=== PATIENT | male | born 1980 | race Native Hawaiian/Other Pacific Islander ===

== ENCOUNTER 2017-07-28 15:17 | Emergency (ER) | payer BC, OTHER ==
[~2017-07-28] VITALS: Ht 167.6 cm; Wt 72.6 kg
[2017-07-28] MEDS ORDERED: COLC0.6C3 PO (15:30)
--- NOTE | 2017-07-28 15:57 | NUR ---
Patient discharged to home in stable conditon. Written and verbal after care instructions given. Patient verbalizes understanding of instructions.
== END 2017-07-28 15:58 | disposition home or self-care (01) ==
LOC: ER 15:17
DX: M10.9 Gout, unspecified (principal)
CPT/HCPCS: A4663